=== PATIENT | male | born 1970 | race Caucasian/White ===

== ENCOUNTER → 2018-09-20 | Outpatient (CLI) | payer BC ==
[~2018-09-20] MED LIST: ACET325T9 PO; ALBU2.5V8 INH; ALBU8.5H6 IH; BUDE10.2 IH; BUPR300T4 PO; GABA300C18 PO; MELO15TA23 PO; OLME20TA17 PO; TRAM50TA PO
--- NOTE | 2018-09-20 15:25 | RAD ---
EXAM: Lumbar spine MRI without contrast. HISTORY: Lower extremity radiculopathy. TECHNIQUE: Multiplanar, multisequence magnetic resonance imaging of the lumbar spine was performed without contrast. COMPARISON: Correlation is made with the report from an exam dated 10/05/2012. The images corresponding with this examiner none available for direct comparison at the time of dictation. FINDINGS: There is mild lumbar levoscoliosis centered at L4-L5. There is slight lumbarization of the S1 segment with rudimentary S1-S2 disc. There is slight retrolisthesis of L1 on L2 and L2 on L3. There is degenerative endplate remodeling with disc space narrowing and osteophytosis primarily at L5-S1. There are multiple endplate Schmorl's nodes. There are few small osseous hemangiomas. No suspicious osseous lesion is seen. There is no acute or subacute fracture. 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 The conus terminates at L1-L2. At L1-L2, there is a disc bulge and endplate remodeling. There is minimal right facet arthropathy. There is mild bilateral foraminal stenosis. At L2-L3, there is a shallow left paracentral disc protrusion superimposed on a disc bulge and endplate osteophytosis. There is mild bilateral facet arthropathy. There is mild bilateral foraminal stenosis. There is mild central canal stenosis. At L3-L4, there is a disc bulge and endplate remodeling. There is mild bilateral facet arthropathy. There is minimal bilateral foraminal stenosis. At L4-L5, there is a broad-based right paracentral to lateral recess disc protrusion with superior extrusion. The extruded disc material measures 1.4 cm superior to the disc space and 1.1 cm transversely and 0.8 cm anteroposteriorly. There is also a right foraminal to extra foraminal disc protrusion and osteophyte complex and left foraminal to extra foraminal disc protrusion at this level. The superimposed on a right lateral predominant disc bulge and endplate osteophytosis. There is moderate right and mild left facet arthropathy. There is slight hypertrophy of the ligamentum flavum. There is severe right and mild left foraminal stenosis with effacement of the exiting right L4 nerve root and abutment of the exiting left L4 nerve root. There is severe central canal stenosis. At L5-S1, there are bilateral foraminal to extra foraminal disc osteophyte complexes superimposed on a disc bulge and endplate osteophytosis. There is severe right and moderate left facet arthropathy. There is moderate bilateral foraminal stenosis with abutment of the exiting L5 nerve roots. There is mild central canal stenosis. IMPRESSION: 1. L4-L5: Broad-based right paracentral to lateral recess disc protrusion with superior extrusion, right foraminal to extra foraminal disc osteophyte complex and left foraminal to extra foraminal disc protrusion. These are superimposed on a disc bulge, endplate osteophytosis, facet arthropathy and hypertrophy of the ligamentum flavum. There is associated severe right and mild left foraminal and severe central canal stenosis. 2. Multilevel degenerative change within the remainder of the lumbar spine, described in detail above. This is associated with mild bilateral foraminal stenosis at L1-L2, mild bilateral foraminal and central canal stenosis L2-L3, minimal bilateral foraminal stenosis at L3-L4 and moderate bilateral foraminal and mild central canal stenosis at L5-S1. 3. Mild scoliosis and slight retrolisthesis at the upper lumbar levels. 4. 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 Electronically signed by: Jyoti Styles MD (09/20/2018 3:22 PM) [place] [id number]
== END | disposition home or self-care (01) ==
LOC: MRI 14:19
PROVIDERS: ATTEND Nurse Practitioner Family
DX: M51.26 Other intervertebral disc displacement, lumbar region (principal); M25.78 Osteophyte, vertebrae; M48.061 Spinal stenosis, lumbar region without neurogenic claudication; M41.86 Other forms of scoliosis, lumbar region; D18.09 Hemangioma of other sites
CPT/HCPCS: 72148

== ENCOUNTER → 2018-10-06 | Outpatient (CLI) | payer BC ==
[~2018-10-06] MED LIST changes: +IOHEXOL 180 MG/ML 10 ML VIAL. ONE; +methylPREDNISolone ACETATE 40 MG/ML VIAL. ONE; +methylPREDNISolone ACETATE 80 MG/ML VIAL. ONE
--- NOTE | 2018-10-06 21:22 | PAIN ---
DATE OF SERVICE: 10/06/2018 PROGRESS NOTE FOR PAIN CLINIC DIAGNOSIS: Lumbar radiculopathy with lumbar degenerative disk disease and lumbar spinal stenosis. HISTORY OF PRESENT ILLNESS: The patient is a 48-year-old male who returns for followup, last seen in 2013. The patient had lumbar epidural steroid injection. He did very well with this for several years. The patient reports about 4 years he had pain controlled after 2 injections in the low back and bilateral lower extremities. Now, he is feeling it mostly in the posterior gluteus, posterior lateral thigh, lateral anterior thigh, anterior medial thighs, medial lower legs into the feet with numbness and tingling. The patient describes no new motor or sensory deficits, but no recent injury or action either. The patient reports it is constant, becoming more sharp and stabbing, throbbing, shooting in the legs with tingling sensation, numbness, radiating pain in the bilateral lower extremities as noted. The patient reports it is an 8 on a scale of 10 at its worst, 2 at its least and a 4 on average and is a 4 today. The patient reports no loss of motor function, but significant fatigability with walking, standing and changing positions, better with sitting or lying down, but has been awakening him from sleep occasionally, not every night. It does affect his ability to walk with significant fatigability in the lower extremities, especially on the right greater than the left. The patient reports he has had no recent other therapies, physical therapies or chiropractic treatment. He does some stretching and strengthening daily on his own. He is still working, working construction jobs as well. The patient reports he is taking meloxicam, gabapentin, Tylenol, which he cannot tell a big difference, but Tylenol does help, but only by about 10%. The patient did have a recent MRI scan of the lumbar spine on 09/20/2018 showing at L4-L5 broad-based paracentral to lateral recess disk protrusion with superior extrusion, with right foraminal to extraforaminal disk protrusion, osteophyte complex, left foraminal to extraforaminal disk protrusion at that level as well, superimposed on right lateral predominant disk bulge, endplate osteophytosis, some moderate right and left lateral facet arthropathy, severe right and mild left foraminal stenosis with effacement of the exiting right L4 nerve root and abutment of the exiting left L4 nerve root with severe central canal stenosis. The patient reports no bowel or bladder incontinence or other complaints. PHYSICAL EXAMINATION: VITAL SIGNS: The patient's blood pressure is 136/86, pulse 78, respirations 18, temperature 97.9 degrees Fahrenheit, height is 5 feet 7 inches, weighs 178 pounds. GENERAL: The patient is awake, alert, oriented, appropriate, very pleasant demeanor. HEENT: Head shows normocephalic, atraumatic. Extraocular movements are intact and symmetrical. Oral cavity: Mucous membranes are moist and pink. Dentition is intact. NECK: Shows anterior throat supple without palpable lymphadenopathy noted. Swallow reflex is symmetrical. CHEST: Shows normal on inspection. Breath sounds are clear to auscultation bilaterally. HEART: Shows S1, S2 clear. No murmurs auscultated. ABDOMEN: Soft, nontender, nondistended. No palpable organomegaly is noted. No rebound or guarding demonstrated. BACK: Shows spine grossly in the midline. Normal appearing thoracic kyphosis and lumbar lordotic curvature. Lumbar paraspinous muscle shows symmetrical on inspection. On palpation, has some moderate tenderness diffusely, but only diffusely without radiation. EXTREMITIES: The patient's lower extremities show deep tendon reflexes 1+ in the patellar and tendo calcaneus tendons are equal. Motor exam is approximately 4 on a scale 5 on the right with dorsiflexion, extension, quadriceps and hamstring flexion and 5/5 on the left. Peripheral pulses are 1+ posterior tibial. No peripheral edema is noted bilaterally. . Lower extremities are warm and dry to touch, equal in color and appearance. Straight leg raise is noted to be positive on the right at about 45 degrees, decreased with knee flexion. Left side is negative. Options were discussed with the patient. The patient's old chart was reviewed as his current medication regimen updated. Current review of systems updated today as well. We will proceed with a lumbar epidural steroid injection today with fluoroscopic guidance. Risks were again discussed including, but not limited to bleeding, infection, possibility of epidural hematoma and subsequent neurological compromise, dural puncture, headaches, spinal cord and/or nerve damage, side effects of steroid medication and poor results regarding pain control. The patient understands and wished to proceed. The patient will return to the clinic in approximately 2 weeks for followup, was counseled as to return appointment, activity level and side effects to be aware of. DIAGNOSIS: Lumbar radiculopathy with lumbar degenerative disk disease and lumbar spinal stenosis. PROCEDURE: Lumbar epidural steroid injection, translaminar approach at the L4-L5 level using C-arm fluoroscopic guidance under sterile prep and drape using local anesthetic. MEDICATION INJECTED: A total of 120 mg Depo-Medrol plus 10 mL of preservative-free normal saline and 2 mL of contrast. CONDITION AT DISCHARGE: Stable. The patient tolerated the procedure well, had no complications. SIERRA SHELLEY MD DR: DAVE/roopa JOB#: [id number] / [id number]
== END | disposition home or self-care (01) ==
LOC: PNCL 10:23
PROVIDERS: ATTEND Anesthesiology
DX: M51.16 Intervertebral disc disorders with radiculopathy, lumbar region (principal); M48.061 Spinal stenosis, lumbar region without neurogenic claudication
CPT/HCPCS: 62323; J1030; J1040; Q9965

== ENCOUNTER → 2021-05-29 | Outpatient (CLI) | payer BC ==
[~2021-05-29] MED LIST changes: -BUPR300T4 PO; +BUPR300T92 PO; -IOHEXOL 180 MG/ML 10 ML VIAL. ONE; -methylPREDNISolone ACETATE 40 MG/ML VIAL. ONE; -methylPREDNISolone ACETATE 80 MG/ML VIAL. ONE
--- NOTE | 2021-05-30 09:24 | KCIC ---
Examination: 3 views right shoulder and 2 views of the bilateral hips HISTORY: History of chronic right shoulder pain, bilateral hip pain COMPARISON: None available FINDINGS: The bilateral femoral heads within the acetabulum. Moderate joint space loss bilateral hip joints lik tanika degenerative changes. Moderate size osteophyte formation or loose body identified in the left hip joint superiorly. Humerus head is within the glenoid. Mild joint space loss identified in the glenohumeral joint, acrom ioclavicular joint. IMPRESSION: 1. Moderate degenerative changes bilateral hip joints. Moderate size osteophyte formation or loose tobi dy identified in the left hip joint superiorly. Consider CT left hip joint 2. Mild joint space loss within the medial joint, acromioclavicular joint. Electronically signed by: Geoff Strange MD (05/30/2021 9:21 AM) [id number]
== END ==
LOC: KCIC 15:44
PROVIDERS: ATTEND Nurse Practitioner Family
DX: M17.0 Bilateral primary osteoarthritis of knee (principal); M25.751 Osteophyte, right hip; M25.752 Osteophyte, left hip; M25.811 Other specified joint disorders, right shoulder; M25.511 Pain in right shoulder
CPT/HCPCS: 73030; 73521

== ENCOUNTER → 2021-06-03 | Outpatient (CLI) | payer BC ==
--- NOTE | 2021-06-03 16:35 | KCIC ---
EXAM: Lumbar spine MRI without contrast. HISTORY: Pain. TECHNIQUE: Multiplanar, multisequence magnetic resonance imaging of the lumbar spine was performed wi thout contrast. COMPARISON: 09/20/2018 FINDINGS: There is a transitional lumbosacral segment. For the purposes of this dictation, this will be considered a partially lumbarized S1 segment with rudimentary S1-S2 disc. This corresponds with th e numbering system utilized on the comparison exam. There is S-shaped lumbar scoliosis. There is straightening of lumbar lordosis. There is minimal retro listhesis of L2 on L3. There is multilevel degenerative endplate remodeling with disc space narrowing and osteophytosis. The findings are most severe along the left lateral aspect of L3-L4 and right lat eral aspect of L4-L5. This corresponds with levels of maximum scoliotic concavity. There are multiple endplate Schmorl's nodes. There is marrow edema secondary to aforementioned degenerative changes primarily at L3-L5. There is a lso edema within the left L4 pedicle, and to a lesser extent, the right L4 and L5 pedicles, likely du e to a stress reaction or degenerative in etiology. The conus terminates at L1. At L1-L2, there is a disc bulge and endplate osteophytosis. There is mild bilateral facet arthropathy . There is mild left foraminal stenosis. At L2-L3, there is a disc bulge and endplate osteophytosis. There is a superimposed fluid signal inte nsity structure along the left posterior aspect of L3 measuring 9 x 9 x 4 mm. This appears to be cont iguous with a lateral recess disc protrusion and inferior extrusion at L2-L3 and is likely due to flu id within extruded disc material. This is not a facet joint synovial cyst. The combination of these f indings results in mild bilateral foraminal stenosis and effacement of the left lateral recess. There is mild central canal stenosis. At L3-L4, there is a left paracentral to extra foraminal disc protrusion and 5 mm superior extrusion superimposed on a left lateral predominant disc bulge and endplate osteophytosis. There is mild left facet arthropathy. There is moderate right and severe left foraminal stenosis. There is severe centra l canal stenosis. At L4-L5, there is a left foraminal to extra foraminal disc protrusion and 4 mm inferior extrusion. T here is also a broad-based right paracentral to extraforaminal disc protrusion and 6 mm superior extr usion. These are superimposed on a right lateral predominant disc bulge and endplate osteophytosis. T here is severe right and mild left facet arthropathy. There is hypertrophy of the ligamentum flavum. There is severe right and moderate left foraminal stenosis. There is severe central canal stenosis. At L5-S1, there are bilateral lateral recess to extra foraminal disc protrusions superimposed on a di sc bulge and endplate osteophytosis. There is mild to moderate bilateral facet arthropathy. There is moderate to severe right and severe left foraminal stenosis. There is mild central canal stenosis. IMPRESSION: 1. Multilevel degenerative change involving the lumbar spine, described in detail above. These findin gs have increased significantly at all levels compared to the prior exam, especially L2-L3 and L3-L4. There is associated significant foraminal and central canal stenosis noted above. The central canal stenosis is most significant at L3-L4 and L4-L5. The right foraminal stenosis is most significant at L4-L5 and a left foraminal stenosis is most significant at L3-L4 and L5-S1. 2. Transitional lumbosacral segment, considered S1 for this dictation. Electronically signed by: Jyoti Styles MD (06/03/2021 4:33 PM) [id number]
--- NOTE | 2021-06-03 18:08 | KCIC ---
EXAM: MRI RIGHT SHOULDER WITHOUT CONTRAST INDICATION: Right shoulder pain. COMPARISON: Right shoulder radiograph 05/29/2021 TECHNIQUE: Multiplanar, multisequence imaging of the right shoulder without contrast. FINDINGS: Very limited exam due to extensive motion artifact on nearly all sequences, despite multiple attempts . ROTATOR CUFF: Complete or near-complete full-thickness tear of the supraspinatus tendon. Possibly a f ew far anterior fibers intact. Degree of retraction is difficult to determine due to extensive motion but is likely at least to the medial humeral head. There is a partial-thickness articular sided tear of the infraspinatus tendon. Teres minor tendon is intact. Subscapularis tendon is difficult to eval uate due to motion artifact. No complete or retracted tear of the subscapularis tendon. Mild muscular atrophy of the supraspinatus and infraspinatus tendons. LABRUM: Unable to evaluate the labrum due to extensive motion. BICEPS TENDON: Biceps tendon not visualized in the bicipital groove, suspected chronic complete tear. ACROMIOCLAVICULAR JOINT: Mild acromial clavicular degenerative joint disease. GLENOHUMERAL JOINT: Unable to evaluate cartilage due to extensive motion. No obvious fracture or vero ow edema. OTHER: There is a joint effusion and fluid in the subacromial-subdeltoid bursa. IMPRESSION: 1. Very limited exam due to extensive motion artifact on all sequences despite multiple attempts. 2. Complete or near-complete full-thickness tear of the supraspinatus tendon with retraction to at le ast the medial humeral head. Partial-thickness articular sided tear of the infraspinatus tendon. No s ignificant muscular atrophy. 3. Biceps tendon is not visualized in the bicipital groove, suspicious for chronic complete tear. 4. Joint effusion and fluid in the subacromial-subdeltoid bursa. 5. Limited evaluation of the subscapularis tendon, labrum, and cartilage due to motion. Electronically signed by: Audrey Gilliam MD (06/03/2021 6:05 PM) [id number]
== END ==
LOC: KCIC MRI 14:42
PROVIDERS: ATTEND Nurse Practitioner Family
DX: M75.121 Complete rotator cuff tear or rupture of right shoulder, not specified as traumatic (principal); M25.411 Effusion, right shoulder; M75.51 Bursitis of right shoulder; M62.511 Muscle wasting and atrophy, not elsewhere classified, right shoulder; M47.26 Other spondylosis with radiculopathy, lumbar region; M51.27 Other intervertebral disc displacement, lumbosacral region; M48.8X7 Other specified spondylopathies, lumbosacral region; M48.07 Spinal stenosis, lumbosacral region; M41.86 Other forms of scoliosis, lumbar region; M51.46 Schmorl's nodes, lumbar region; M25.78 Osteophyte, vertebrae
CPT/HCPCS: 72148; 73221

== ENCOUNTER → 2021-06-12 | Outpatient (CLI) | payer BC ==
[~2021-06-12] MED LIST changes: +GUAI100G2 PO; +MULT-245 PO
--- NOTE | 2021-06-12 14:44 | PDOC ---
Progress Note - Pain Clinic Date of Service: DOS: DATE: 06/12/21 TIME: 14:37 Diagnosis: Dx: Lumbar radiculopathy with lumbar degenerative disease and lumbar spinal stenosis History or Present Illness: HPI: 50-year-old male returns last seen September 2018 patient very well after lumbar epidural steroid injection about 70% improvement for several months patient reports the pain is gradually been returning over the past 6 months or so now as he has noticed more pain in the low back and into the bilateral lower extremities patient reports tingling down the legs which is new also some sharp pain in the knees and the hips as well as his right shoulder. Patient reports tingling in the legs and cramping in the calves which she did not have previously again is been over 2 years since his last visit and patient reports the pain is becoming more unbearable where he is sleeping in a reclining chair in a semiupright position. Patient reports he is doing this because he cannot get up from lying down sometimes in the morning because of the unbearable pain in the low back and legs. Patient did have a new MRI scan dated June 03, 2021 as well as MRI of the right shoulder showing a full thickness tear of the supraspinatus tendon on the right with retraction to at least the medial humeral head and partial thickness articular sided tear of the infraspinatus tendon. Patient lumbar spine shows multilevel degenerative changes increase significant all levels compared to previous exam of September 20, 2018 especially L2-3 and L3-4 with associated significant foraminal and central canal stenosis noted most significant at L3-4 and L4-5 with right foraminal stenosis most significant L4-5 and left foraminal stenosis most significant at L3-4 and L5-S1. We discussed all of these findings with the patient today. Patient reports no bowel or bladder incontinence or loss of motor function but significant pain in the back and legs as well as the right shoulder. Patient reports his pain is a 9 on scale 10 is worst 5 on average 3 to [place] is a 5 today. Physical Exam: VS: Blood pressure is 159/106 pulse 91 respirations 18 temperature 98.2 F weight is 171 pounds PE: PHYSICAL EXAMINATION: GENERAL: The patient is awake, alert, oriented, appropriate, very pleasant in demeanor HEENT: Shows normocephalic, atraumatic. Extraocular movements are intact and symmetrical. Oral cavity: Mucous membranes moist and pink. Dentition is intact. NECK: Shows anterior throat supple without palpable lymphadenopathy noted. Swallow reflex symmetrical. CHEST: Shows normal on inspection. Breath sounds are clear bilaterally, distant and coarse but no rales or rhonchi, or wheezes auscultated. HEART: Shows S1, S2 clear. No murmurs auscultated. ABDOMEN: Soft, nontender, nondistended. No palpable organomegaly is noted. BACK: Shows spine grossly in the midline. Normal-appearing cervical lordotic curvature. There is mildly increased thoracic kyphosis, some moderate flattening of the lumbar lordotic curvature. Lumbar paraspinous muscles show symmetrical on inspection, on palpation shows some moderate tenderness diffusely throughout the upper, middle and lower distribution of the paraspinous muscles, but without specific trigger points, without radiation of pain. The patient has good rotational motion of the lumbar spine, both laterally as well as extension and flexion without significant difficulty. No tenderness over the spinous processes, sacrum or sacroiliac regions. EXTREMITIES: Lower extremities show deep tendon reflexes 1+ in the patellar and tendo calcaneus tendons. Motor exam is 4 on a scale of 5 with right dorsiflexion, extension, quadriceps and hamstring flexion and 5/5 on the left. Peripheral pulses are 1+ posterior tibial. No peripheral edema is noted bilaterally. Lower extremities are warm and dry to touch, equal in color and appearance. SKIN: Shows warm and dry, good turgor. No edema. No sores, rashes or bruising throughout. Procedure: Procedure: Options were discussed with the patient. Patient's old chart was reviewed his his current medication regimen updated current review of systems updated today as well. We will proceed with a lumbar epidural steroid injection today with fluoroscopic guidance. Risks were discussed including but not limited to: Bleeding, infection, possibility of epidural hematoma and subsequent neurological compromise, dural puncture, headaches, spinal cord and/or nerve damage, side effects of steroid medication, and poor results regarding pain control. Patient understands and wished to proceed. Patient will return to the clinic in approximately 2 weeks for follow-up, was counseled as to return appointment, activity level, and side effect to be aware of. Medication Injected: Med Injected: Procedure is lumbar epidural steroid injection under local anesthetic using sterile prep and drape at the L4-5 level using C-arm fluoroscopic guidance in both AP and lateral views medications injected is 120 mg Depo-Medrol +10mL preservative-free normal saline and 2 mL contrast- condition at discharge is stable patient tolerated procedure well had no complications. Condition at Discharge: Condition at Discharge: Condition at discharge stable, patient tolerated the procedure well and had no complications. SIERRA SHELLEY MD Jun 12, 2021 14:44
--- NOTE | 2021-06-12 14:45 | PDOC4 ---
Procedure Note: ICD 10 Code: ICD 10 Code: M54.16 M51.36 M48.06 Procedure Note: Patient was consented for lumbar epidural steroid injection with fluoroscopic guidance. Risks were discussed including but not limited to: Bleeding, infection, possibility of epidural hematoma and subsequent neurological compromise, dural puncture, headaches, spinal cord and/or nerve damage, side effects of steroid medication, and poor results regarding pain control. Patient understands and wished to proceed. Procedure is lumbar epidural steroid injection under local anesthetic using ster ile prep and drape at the L4-5 level using C-arm fluoroscopic guidance in both AP and lateral views medications injected is 120 mg Depo-Medrol +10mL preservative-free normal saline and 2 mL contrast- condition at discharge is stable patient tolerated procedure well had no complications. SIERRA SHELLEY MD Jun 12, 2021 14:45
== END | disposition home or self-care (01) ==
LOC: PNCL 13:50
PROVIDERS: ATTEND Anesthesiology
DX: M51.16 Intervertebral disc disorders with radiculopathy, lumbar region (principal); M48.061 Spinal stenosis, lumbar region without neurogenic claudication; Z79.899 Other long term (current) drug therapy
CPT/HCPCS: 62323

== ENCOUNTER → 2021-06-21 | Outpatient (CLI) | payer BC ==
[~2021-06-21] MED LIST changes: +BUPIVACAINE MPF 0.5% 10 ML VIAL. INT ART ONE; +IOHEXOL 300 MG/ML 50 ML VIAL. INT ART ONE; +LIDOCAINE 1% Multi-Dose 20 ML VIAL. ID ONE; +TRIAMCINOLONE ACETONIDE 40 MG/ML VIAL. INT ART ONE
--- NOTE | 2021-06-21 16:31 | KCIC ---
FLUOROSCOPICALLY GUIDED LEFT HIP THERAPEUTIC INJECTION 1. INDICATION: The patient is a 50 years old Male who presented with left hip pain. 2. CONSENT: The risks, benefits, treatment options, potential complications and personnel to be invo lved were discussed (including the risks of radiation exposure, instruments to be used, contrast and anesthesia administration) with the patient. All questions were answered and consent was obtained. Th e patient indicated willingness to proceed. 3. GENERAL: a) Medication Reconciliation: The patient's medications and allergies were reviewed in the [facility] medical record and reconciled to the proposed procedure/treatment. Pre-procedure Sign-in: Safety Checklist Performed Yes b) Positioning: The patient was placed Supine on the fluoroscopy table. c) The hip was then sterilely prepped and draped. d) Time Out: A time out was performed immediately prior to procedure start with the nursing, anesthes ia and interventional team, correctly identifying the patient name, date of , procedure, anatomy (including marking of site and side), patient position, procedure consent form, relevant diagnostic and radiology test results, antibiotic administration, safety precautions, and procedure-specific equ ipment needs. Procedure Start Time / Timeout Time: 15:22 e) Anesthesia Type: Local anesthesia: 3 mL 1% Lidocaine 4. PROCEDURE: a) Procedure Details: A 22g spinal needle was inserted into the hip joint. 1 mL Omnipaque 300 was in jected to confirm intra-articular placement of needle. Contrast was observed to flow into the intra-a rticular space of the joint without significant resistance. 5 mL of injectate was administered into t he joint. The needle was removed. Images were stored to the permanent digital archive documenting nee dle position. b) Injectate Contents: 1 mL Triamcinolone Acetonide (Kenalog) 80mg/ml 4 mL 0.25% Bupivacaine (Marcaine,Sensorcaine) c) Estimated Blood Loss: 0 mL RADIATION DOSE: Fluoroscopic Radiation Summary: Fluoroscopy Time: 0:08 min:sec Number of Images: 1 POST PROCEDURE: a) Hemostasis: Hemostasis was achieved using light manual compression. b) Sign-out: Communication Performed Yes c) Conclusion: The patient was discharged from the radiology department in stable condition. COMPLICATIONS: a) Significant Patient Complication: None If other, explain: b) Complications during the procedure: None If other, explain: 5. RESULTS: Medication was injected into the joint. 6. IMPRESSION: SUCCESSFUL FLUOROSCOPICALLY GUIDED THERAPEUTIC INJECTION OF THE LEFT HIP DESCRIBED ABO ARIS. Electronically signed by: Kelvin Subramanian DO (06/21/2021 4:28 PM) [id number]
== END | disposition home or self-care (01) ==
LOC: KCIC 14:52
PROVIDERS: ATTEND Orthopaedic Surgery Sports Medicine
DX: M25.552 Pain in left hip (principal); M16.0 Bilateral primary osteoarthritis of hip; Z79.899 Other long term (current) drug therapy
CPT/HCPCS: 20610; 77002; J3301; J3490; Q9967

== ENCOUNTER 2021-07-16 08:01 | Day surgery (SDC) | payer BC ==
[~2021-07-16] VITALS: Ht 170.2 cm; Wt 70.2 kg
[~2021-07-16 08:01] MED LIST changes: -BUPIVACAINE MPF 0.5% 10 ML VIAL. INT ART ONE; +HYDROmorphone 2 MG/ML INJ. IVP PRN; -IOHEXOL 300 MG/ML 50 ML VIAL. INT ART ONE; +IV RINGERS,LACTATED 1000ML 1,000 ML IV SCH; -LIDOCAINE 1% Multi-Dose 20 ML VIAL. ID ONE; +MORPHINE SULFATE 2 MG/ML INJ. IVP PRN; +PROCHLORPERAZINE 10 MG/2 ML VIAL. IVP PRN; -TRIAMCINOLONE ACETONIDE 40 MG/ML VIAL. INT ART ONE; +fentaNYL PF VIAL 100 MCG/2 ML VIAL IVP PRN
[2021-07-16 08:30] VITALS: BP 152/93
[2021-07-16] MEDS ORDERED: OXYC1TAB15 PO (08:49)
--- NOTE | 2021-07-16 08:50 | DISCH ---
DISCHARGE INSTRUCTIONS Condition on Discharge Condition on Discharge: Stable Activity After Discharge Activity Instructions for Disc: Other ROM activity Other activity instructions: arm to remain in sling Bathing Instructions: Shower-keep dressing dry Weight Bearing Status after Di: Non weight bearing Diet after Discharge Diet after Discharge: Regular Wound Incision Care Wound/Incision Care: Ice to area for comfort, Keep wound/cast CDI, Change dressing Other wound/incision instructi: change dressing in [address] after DC Call your doctor for: Concerns you may have Follow-Up Follow up with: Jeannette in 2wks MICHELLE EATON II, MD Jul 16, 2021 08:50
--- NOTE | 2021-07-16 08:53 | PDOC4 ---
Operative Note Operative Note Date of procedure: Surgeon: Vinod Eaton Operator Automated Process: John Barillas, certified personal trainer Preoperative diagnosis: Right shoulder rotator cuff tear Postoperative diagnosis: Same Procedure performed: Arthroscopic right shoulder rotator cuff repair Anesthesia: Gen. plus regional nerve block Findings: #1 Grade 1 changes at glenohumeral joint 2. Labrum was intact circumferentially 3. Longitudinal split in biceps tendon 4. No loose bodies 5. 1 cm tear at supraspinatus, leading edge, remainder of rotator cuff intact Blood loss: 10mL Components inserted: [employer] Helacoil anchor Reason for procedure: Patient is a very pleasant gentleman who has had developed shoulder pain and dysfunction. Clinical and radiographic examination, including MRI were consistent with the preoperative diagnosis. Given the chronicity of the symptoms, failure conservative therapies, we had a discussion of the risks, benefits, and alternatives to surgery and he wished to proceed. Description of procedure: Patient was greeted in the preoperative holding area where the correct extremity was verified and marked. They were taken to the preoperative holding area where the anesthesiology team placed a regional nerve block. The patient was then taken back to the operative suite and antibiotics were started as they were brought back. Once in the operative room, the patient was transferred gently supine to the operating room table after successful induc tion of a general anesthetic. After this, he was sat up in a beachchair position maintaining his C-spine in neutral position, large pad under his legs, he was secured to the bed. We then prepped and draped his right upper extremity and shoulder girdle in our usual sterile fashion, we conducted our standard preoperative timeout. I palpated and marked surface anatomy for my planned p ortal sites. I then used a spinal needle to localize a posterior superior portal and incised skin in accordance with this. After this, I introduced the blunt arthroscopic trocar into the glenohumeral joint followed by the camera. I used a spinal needle to localize an anterosuperior portal and incised skin in accordance with this. I then introduced my arthroscopic probe and conducted my diagnostic arthroscopy with the above-noted findings. After this, I repositioned the camera into the subacromial space and performed a bursectomy with combination of shaver and electrocautery device, after creating a lateral portal under spinal needle localization. I then identified the rotator cuff tear and I debrided the pathologic tendon and prepared my footprint. Given the very anterior nature of the tear, I have opted to create an accessory anterolateral portal to place my anchor and work through. I then placed my helacoil anchor and shuttled limbs through in a simple configuration. I tied these down with arthroscopic knot-tying techniques. The tear was stable to probing and to gentle rotation of the arm. I then removed all loose bony debris and the excess arthroscopic fluid. I took my final pictures prior to this. After this, all the excess fluid and instrumentation was removed. The portals were closed with simple interrupted 3-0 nylon. Sterile dressing was applied followed by an abduction pillow sling. Patient tolerated surgery well. No complications. At the conclusion, he was laid supine and transferred gently supine to the recovery room cart and taken to the PACU in a stable and extubated condition. Postoperative plan is discharge him home, nonweightbearing for 6 weeks. Well get him started on physical therapy. He will follow up with me in 2 weeks, sooner should a problem arise. VINOD EATON II, MD Jul 16, 2021 08:53
[2021-07-16] MEDS ORDERED: EPINEPHrine 1 MG/ML VIAL ONE (10:13)
[2021-07-16] MEDS ORDERED: fentaNYL PF VIAL 100 MCG/2 ML VIAL ONE ×2 (10:16→11:12)
[2021-07-16] MEDS ORDERED: DEXAMETHASONE SOD PHOS 4 MG/ML VIAL ONE ×2 (10:17→10:36)
[2021-07-16] MEDS ORDERED: MIDAZOLAM HCL/PF 2 MG/2 ML VIAL. ONE (10:17)
[2021-07-16] MEDS ORDERED: BUPIVACAINE MPF 0.5% 30 ML VIAL. ONE (10:17)
[2021-07-16] MEDS ORDERED: LIDOCAINE 2% PF 5 ML VIAL. ONE (10:17)
[2021-07-16] MEDS ORDERED: PROPOFOL 10 MG/ML (20ML) VIAL. IV ONE (10:36)
[2021-07-16] MEDS ORDERED: SEVOFLURANE 61 TO 120 MINUTES. IH ONE (10:36)
[2021-07-16] MEDS ORDERED: ONDANSETRON PF 4 MG/2 ML VIAL. ONE (10:36)
[2021-07-16] MEDS ORDERED: SUCCINYLCHOLINE 200 MG/10 ML VIAL. ONE (10:37)
[2021-07-16] MEDS ORDERED: ePHEDrine PF IN SALINE 50 MG/10 ML SYRINGE. IV ONE (11:54)
[2021-07-16] MEDS ORDERED: oxyCODONE/APAP 5/325 1 TAB TABLET PO ONE (12:45)
[2021-07-16 13:00] VITALS: BP 114/69
== END 2021-07-16 13:50 | disposition home or self-care (01) ==
LOC: SURG 08:01
PROVIDERS: ATTEND Orthopaedic Surgery Sports Medicine
DX: M75.101 Unspecified rotator cuff tear or rupture of right shoulder, not specified as traumatic (principal); I10 Essential (primary) hypertension; J45.909 Unspecified asthma, uncomplicated; Z79.899 Other long term (current) drug therapy; Z98.890 Other specified postprocedural states
CPT/HCPCS: 29827; 64415; A4355; A4565; A4928; A4930; A6253; C1713; J0171; J0330; J0690; J1100; J2250; J2405; J2704; J3010; J3490; A4452

== ENCOUNTER → 2021-09-26 | Outpatient (CLI) | payer BC ==
[~2021-09-26] MED LIST changes: +BUPIVACAINE MPF 0.5% 10 ML VIAL. INT ART ONE; -HYDROmorphone 2 MG/ML INJ. IVP PRN; +IOHEXOL 300 MG/ML 50 ML VIAL. INT ART ONE; -IV RINGERS,LACTATED 1000ML 1,000 ML IV SCH; +LIDOCAINE 1% Multi-Dose 20 ML VIAL. ID ONE; -MORPHINE SULFATE 2 MG/ML INJ. IVP PRN; +OXYC1TAB15 PO; -PROCHLORPERAZINE 10 MG/2 ML VIAL. IVP PRN; +TRIAMCINOLONE PRES.FREE 40 MG/ML VIAL. INT ART ONE; -fentaNYL PF VIAL 100 MCG/2 ML VIAL IVP PRN
--- NOTE | 2021-09-26 17:35 | KCIC ---
Exam Date: 09/26/2021 9:20 AM IR ARTHROCENT INT JT ASP/INJ LT Indication: Reason: Primary OA Lt. hip / Spl. Instructions: 1mL Lidocaine,2mL Bupivicaine,40mg Kenalo g,4 sec fl, 2 images. / History: . PROCEDURE NOTE FOR FLUOROSCOPIC GUIDED NEEDLE PLACEMENT, IODINATED CONTRAST INJECTION, AND LEFT HIP T HERAPEUTIC INJECTION HISTORY: LEFT hip pain. PROCEDURE: A timeout was performed to ensure that the patient's name and procedure matched our inform ation. The staff personally assured that informed consent was obtained. After the risks, benefits a nd alternatives to the procedure were discussed with the patient, the patient elected to proceed. Und er fluoroscopic guidance, a suitable target was selected and the overlying skin was marked. The patie nt was prepped and draped in the usual sterile fashion. Local anesthesia with 5 cc lidocaine was give n. Under fluoroscopic guidance, a 20 gauge spinal needle was inserted through the anesthetized tract into the LEFT hip joint. Intra-articular location was confirmed by a test injection of 0.5 cc Isovue 200. The joint was then injected with a combination of 1 cc Kenalog (40 mg/ml) and 2 cc 0.5% Marcain e (Bupivacaine) and 1 cc lidocaine. The patient tolerated the procedure very well without any immediate adverse consequence. The patient reported pain relief in the hip following the procedure. COMPLICATIONS: None. Total fluoroscopy time: 4 seconds Fluoroscopic images: 0 IMPRESSION: Successful fluoroscopic-guided needle placement, iodinated contrast injection and LEFT h ip therapeutic injection. The patient reported pain relief in the hip following the procedure. Electronically signed by: Guanako Tobar MD (09/26/2021 5:33 PM) [id number]
== END | disposition home or self-care (01) ==
LOC: KCIC 09:07
PROVIDERS: ATTEND Orthopaedic Surgery Sports Medicine
DX: M16.12 Unilateral primary osteoarthritis, left hip (principal); I10 Essential (primary) hypertension; J45.909 Unspecified asthma, uncomplicated; Z79.899 Other long term (current) drug therapy
CPT/HCPCS: 20610; 77002; J3301; J3490; Q9967